=== PATIENT | male | born 1975 | race Two or more races ===

== ENCOUNTER 2016-11-30 15:13 | Emergency (ER) | payer MEDICARE, MEDICAID ==
[~2016-11-30] VITALS: Ht 182.9 cm; Wt 127.0 kg
--- NOTE | 2016-11-30 15:15 | NUR ---
PATIENT C/O CHEST PAIN. 12 LEAD EKG DONE UPON ARRIVAL. IV PLACED. CONTINUOUS CARDIAC MONITORING ON.
[2016-11-30] MEDS ORDERED: OMEP20TA20 PO (15:27)
[2016-11-30] MEDS ORDERED: TRAM50TA2 PO (15:27)
[2016-11-30] MEDS ORDERED: RANI150T12 PO (15:27)
[2016-11-30] MEDS ORDERED: LORAZEPAM 2 MG/1 ML VIAL IV ONE (15:30)
[2016-11-30] MEDS ORDERED: KETOROLAC TROMETHAMINE 30 MG INJ IVP ONE (15:30)
[2016-11-30] MEDS ORDERED: ONDANSETRON 4 MG/2 ML VIAL IV ONE (15:30)
[2016-11-30] MEDS ORDERED: IV NORMAL SALINE 1000 ML BAG IV ONE (15:30)
[2016-11-30] MEDS ORDERED: KETOROLAC TROMETHAMINE 30 MG INJ ONE (15:57)
[2016-11-30 15:58] LABS: CREATININE 1.1 mg/dL (0.6-1.3); POTASSIUM 3.9 mmol/L (3.5-5.1)
[2016-11-30] MEDS ORDERED: LORAZEPAM 2 MG/1 ML VIAL ONE (15:58)
[2016-11-30] MEDS ORDERED: ONDANSETRON 4 MG/2 ML VIAL ONE (15:58)
[2016-11-30 16:00] LABS: BASOPHILS # (AUTO) 0.2 K/uL (0.0-8.0); BASOPHILS % (AUTO) 1.8 % (0.0-2.0); EOSINOPHILS # (AUTO) 0.1 K/uL (0.0-0.7); EOSINOPHILS % (AUTO) 0.5 % (0.0-7.0); HEMATOCRIT 43.1 % (40-50); HEMOGLOBIN 13.7 G/DL (14.0-18.0); LYMPHOCYTES # (AUTO) 3.2 K/UL (0.8-4.8); LYMPHOCYTES % (AUTO) 30.1 % (20.5-51.5); MEAN CORPUSCULAR HEMOGLOBIN 25.4 UUG (27.0-31.0); MEAN CORPUSCULAR HGB CONC 32 g/dL (32.0-37.0); MEAN CORPUSCULAR VOLUME 79.8 FL (82.0-92.0); MONOCYTES # (AUTO) 0.7 K/UL (0.1-1.30); MONOCYTES % (AUTO) 6.8 % (0.0-11.0); NEUTROPHILS # (AUTO) 6.3 K/UL (1.8-8.9); NEUTROPHILS % (AUTO) 60.8 % (38.5-71.5); WHITE BLOOD COUNT (AUTO) 10.5 K/UL (4.0-11.2)
[2016-11-30 16:03] LABS: PLATELET COUNT (AUTO) 275 K/UL (150-450)
[2016-11-30 16:04] LABS: BILIRUBIN,DIRECT 0.1 mg/dL (0.0-0.2); BILIRUBIN,TOTAL 0.4 mg/dL (0.2-1.0); TOTAL PROTEIN, SERUM 7.8 g/dL (6.4-8.2)
--- NOTE | 2016-11-30 18:00 | NUR ---
PT IS AWAKE AND ALERT. STATES PAIN HAS DIMINIHSED SOME. AWAITING TEST RESULTS.
--- NOTE | 2016-11-30 18:43 | NUR ---
DC AND FOLLOW UP INSTRUCTIONS GIVEN AND EXPLAINED TO PATIENT WHO STATES HE UNDERSTANDS ALL INSTRUCTIONS.
[2016-11-30 18:44] VITALS: BP 110/74
== END 2016-11-30 18:45 | disposition home or self-care (01) ==
LOC: ER 15:13
DX: R07.9 Chest pain, unspecified (principal); K21.9 Gastro-esophageal reflux disease without esophagitis
CPT/HCPCS: 36415; 70030-TC; 71010; 85025; 85730; 93005; A4663; J1885; J2060; J2405; J7030